=== PATIENT | male | born 1965 | race Two or more races ===

== ENCOUNTER 2025-02-13 15:02 | Emergency (ER) | payer MEDICAID ==
[~2025-02-13] VITALS: Ht 170.2 cm; Wt 71.7 kg
[2025-02-13] MEDS ORDERED: MORPHINE SULFATE 8 MG/ML VIAL IJ ONE (15:30)
[2025-02-13] MEDS ORDERED: LIDOCAINE 1%-EPI 1:100,000 20 ML VIAL ONE (15:30)
[2025-02-13] MEDS: TDAP [DIPH/PERTUSSIS/TET] 0.5 ML VIAL IM ONE (15:30)
[2025-02-13] MEDS ORDERED: ONDANSETRON 4 MG TAB.RAPDIS SL ONE (15:30)
[2025-02-13] MEDS ORDERED: CEFAZOLIN 1 GM VIAL IM ONE (15:30)
[2025-02-13] MEDS ORDERED: MORPHINE SULFATE INJ 4 MG/ML DISP.SYRIN ONE (15:44)
[2025-02-13] MEDS ORDERED: ONDANSETRON HCL/PF 4 MG/2 ML VIAL ONE (15:44)
[2025-02-13] MEDS ORDERED: TDAP [DIPH/PERTUSSIS/TET] 0.5 ML VIAL IM ONE (15:44)
[2025-02-13] MEDS: MORPHINE SULFATE 8 MG/ML VIAL IV ONE (15:57)
[2025-02-13] MEDS: ONDANSETRON HCL/PF - ER 4 MG/2 ML VIAL IV ONE (15:57)
[2025-02-13] MEDS: LIDOCAINE /MPF 1% VIAL 5 ML VIAL IJ ONE (16:00)
[2025-02-13] MEDS ORDERED: CEFAZOLIN 2 GM in IV D5W 100 ML IV SCH (16:00)
[2025-02-13] MEDS: CEFAZOLIN 2 GM in IV D5W 100 ML IV ONE (16:00)
[2025-02-13 17:47] VITALS: BP 141/81; TEMP 98.3; O2SAT 100
== END 2025-02-13 17:48 | disposition home or self-care (01) ==
LOC: ER 15:05
DX: S62.521A Displaced fracture of distal phalanx of right thumb, initial encounter for closed fracture (principal); S61.411A Laceration without foreign body of right hand, initial encounter; R03.0 Elevated blood-pressure reading, without diagnosis of hypertension; W29.1XXA Contact with electric knife, initial encounter; Y93.89 Activity, other specified; Y92.89 Other specified places as the place of occurrence of the external cause; Y99.0 Civilian activity done for income or pay
CPT/HCPCS: 12002; 73130; 90471; 90715; 96365; 96375; 99284; A6403; J0690; J2270; J2405; J3490; J7060

== ENCOUNTER 2025-02-15 20:18 | Emergency (ER) | payer MEDICAID ==
[~2025-02-15] VITALS: Ht 170.2 cm; Wt 71.7 kg
[2025-02-15 20:58] VITALS: BP 134/89; TEMP 98.4
[2025-02-15 22:03] VITALS: O2SAT 98
== END 2025-02-15 22:54 | disposition home or self-care (01) ==
LOC: ER 20:24
DX: S61.411D Laceration without foreign body of right hand, subsequent encounter (principal); X58.XXXD Exposure to other specified factors, subsequent encounter